=== PATIENT | female | born 1995 | race Hispanic/Latino ===

== ENCOUNTER 2017-10-23 12:16 | Emergency (ER) | payer SELFPAY ==
[2017-10-23] MEDS ORDERED: Ibuprofen 200 MG TAB ONE (12:44)
== END 2017-10-23 12:55 | disposition home or self-care (01) ==
LOC: ERS 12:16
DX: L03.031 Cellulitis of right toe (principal); L60.0 Ingrowing nail
CPT/HCPCS: 99283